=== PATIENT | female | born 1945 | race Caucasian/White ===

== ENCOUNTER 2016-08-30 13:18 | Day surgery (SDC) | payer MEDICARE ==
[~2016-08-30] VITALS: Ht 154.9 cm; Wt 68.0 kg
[2016-08-30 13:39] VITALS: BP 171/95; PULSE 80; RESP 20; TEMP 98.1; O2SAT 94
[2016-08-30] MEDS ORDERED: ESCI10TA PO (14:00)
[2016-08-30] MEDS ORDERED: HYDR12.57 PO (14:00)
[2016-08-30] MEDS ORDERED: DILT0.05 PO (14:00)
[2016-08-30] MEDS ORDERED: ASPI-110 PO (14:01)
[2016-08-30] MEDS ORDERED: VITA100018 PO (14:01)
[2016-08-30] MEDS ORDERED: ALLE10TA PO (14:01)
--- NOTE | 2016-08-30 15:24 | RADRPT ---
EXAM DATE/TIME: 08/30/2016 00:00 [facility] COMPARISON : No previous studies available for comparison. INDICATIONS : CONSULT FOR RENAL CONSULT OBJECTIVE: Temperature: 98.1 Heart Rate: 80 Blood Pressure: 171/95 Respiratory: 18 Oximetry: 94 PNEUMONIA VACCINE: YES HISTORY OF PRESENT ILLNESS: 71-year-old female with right renal mass incidentally noted on imaging. Patient here to discuss cryoa blation. Patient denies any hematuria or flank pain. PAST MEDICAL HISTORY : 1. Hypertension. 2. ANXIETY 3. HIATAL HERNIA 4. ENVIRONMENTAL ALLERGIES 5. ELEVATED KIDNEY FUNCTION PAST SURGICAL HISTORY : 1. TONSILLECTOMY 2. BENIGN TUMOR LEFT BREAST 3. L ANKLE SURGERY SOCIAL HISTORY : Social alcohol use. Tobacco;none. ALLERGIES: ENVIRONMENTAL ALLERGIES 2. NKDA MEDICATIONS: 1. DILTIAZEM ER 180 mg q.d. 2. ESCITALOPRAM 10 mg q.d. 3. HCTZ 12.5 mg q.d. 4. ASPIRIN 81 mg q.d. 5. VITAMIN D3 1000 units q.d. 6. LORATADINE 10 mg q.d. PHYSICAL EXAMINATION: General: Awake and alert. In no acute distress. Cardiovascular: Regular rate and rhythm. Respiratory: Lungs are clear to auscultation bilaterally. Extremities: Within normal limits. No edema IMAGING STUDIES: MRI of the abdomen August 06, 2016 from [facility]. These images were reviewed. They reveal a 3 x 2.4 cm enhancing solid mass involving the upper pole the right kidney. No adenopathy. 5 mm of retro peritoneal fat separate the lesion from the adjacent liver. Renal vein is unremarkable. ASSESSMENT: 3 cm lesion involving upper pole the right kidney worrisome for renal cell carcinoma. We discussed th e risks, benefits, and alternatives of cryoablation therapy. We also discussed performing biopsy imme diately followed by cryoablation versus the studies. She wishes to proceed with renal biop sy and cryoablation at the same setting. PLAN: Core biopsy and cryoablation of a right renal lesion. TIME SPENT: <20 minutes Josue Cho Jr., MD on August 30, 2016 at 15:12 Board Certified Radiologist. This report was verified electronically.
== END 2016-08-30 15:00 | disposition home or self-care (01) ==
LOC: HROP 13:18 → HRIP 13:23 → HROP 15:00
PROVIDERS: ATTEND Urology
DX: N28.89 Other specified disorders of kidney and ureter (principal); I10 Essential (primary) hypertension; F41.9 Anxiety disorder, unspecified; Z91.09 Other allergy status, other than to drugs and biological substances; Z79.82 Long term (current) use of aspirin

== ENCOUNTER 2016-08-31 09:38 | Day surgery (SDC) | payer MEDICARE ==
[~2016-08-31] VITALS: Ht 154.9 cm; Wt 68.2 kg
[~2016-08-31 09:38] MED LIST: ALLE10TA PO; ASPI-110 PO; DILT0.05 PO; ESCI10TA PO; HYDR12.57 PO; VITA100018 PO
[2016-08-31 09:58] VITALS: BP 151/93; PULSE 84; RESP 20; TEMP 98; O2SAT 95
[2016-08-31] MEDS ORDERED: SODIUM CHLOR 0.9% 1000 ML INJ 1,000 ML IV SCH ×2 (10:30→11:30)
[2016-08-31] MEDS ORDERED: CHLORHEXIDINE GLUCONATE 2 % 1 PACK (2 CLOTHS) TOPICAL PRN (11:00)
[2016-08-31] MEDS ORDERED: LACTATED RINGER'S 1000 ML IV PRN (11:00)
[2016-08-31] MEDS ORDERED: INSULIN HUMAN REGULAR 1,000 UNITS/10 ML VIAL SQ PRN (11:00)
[2016-08-31] MEDS ORDERED: POVIDONE IODINE 5% (ANTISEPSIS KIT) 4 APPLICATIONS EACH NARE PRN (11:00)
[2016-08-31] MEDS ORDERED: METOPROLOL TARTRATE 25 MG TAB PO PRN (11:00)
[2016-08-31] MEDS ORDERED: SODIUM CHLORID 0.9% 500 ML IV PRN (11:00)
[2016-08-31] MEDS ORDERED: ceFAZolin 2 GM PREMIX 50 ML ONE (11:12)
[2016-08-31] MEDS ORDERED: LIDOCAINE HCL 1% 20 ML VIAL ONE (11:14)
[2016-08-31] MEDS ORDERED: ceFAZolin 2 GM PREMIX 50 ML IV SCH (11:30)
--- NOTE | 2016-08-31 13:53 | PD.RAD ---
Post CT Procedure Prog Note Pre Procedure Diagnosis: (1) Renal mass, right Post Procedure Diagnosis: (1) Renal mass, right Procedure Date: Aug 31, 2016 Supervising Radiologist: Josue Cho JR Proceduralist/Assist: Jaguar Jameson RT(R)(CT) Anesthesia: General Plan of Activity Patient to Unit: PACU Patient Condition: Good See PACS Report for procedural detail/treatment Biopsy Imaging Guidance: CT Side: Right Biopsy Procedure: Kidney Specimen: Core Biopsy Findings: Successful right upper pole renal mass biopsy and cryoablation. Good result. Post ablation images show good ice ball. No untreated portion of lesion seen. No pneumothorax. Plan F/U with nephrology as planned. Patient will need f/u CTs in 3,6, and 12 months to start. This was discussed with the patient. Jr. Marquis,Josue Almonte MD Aug 31, 2016 13:53
[2016-08-31] MEDS ORDERED: oxyCODONE/ACETAMINOPHEN 5 MG/325 MG TAB PO PRN (14:00)
[2016-08-31] MEDS ORDERED: DO NOT ADM ANY ANTICOAGULANT DRUGS PRN (14:04)
[2016-08-31] MEDS ORDERED: ACETAMINOPHEN 1000 MG/100 ML VIAL IV ONE ×2 (14:17→14:45)
[2016-08-31 15:34] VITALS: BP 136/62; PULSE 62; RESP 18; TEMP 97.5; O2SAT 95
[2016-08-31 16:04] VITALS: BP 142/70; PULSE 67; RESP 19; O2SAT 94
--- NOTE | 2016-08-31 16:07 | RADRPT ---
EXAM DATE/TIME: 08/31/2016 14:24 [facility] COMPARISON: No previous studies available for comparison. INDICATIONS : Pneumothorax, s/p cryoablation. MEDICAL HISTORY : Hypertension. Hiatal hernia. SURGICAL HISTORY : None. ENCOUNTER: Initial ACUITY: 1 day PAIN SCORE: 0/10 LOCATION: Bilateral chest FINDINGS: The lungs are symmetrically aerated and clear. Elevation right hemidiaphragm. The heart is normal s ize. No evidence of pneumothorax. CONCLUSION: No evidence of pneumothorax on this semierect view of the chest. Josue Alba MD on August 31, 2016 at 15:59 Board Certified Radiologist. This report was verified electronically.
[2016-08-31 17:04] VITALS: BP 128/68; PULSE 81; RESP 17; O2SAT 97
--- NOTE | 2016-08-31 17:41 | RADRPT ---
EXAM DATE/TIME: 08/31/2016 11:49 [facility] COMPARISON: Outpatient MRI of the abdomen. INDICATIONS : Right renal mass BIOPSY SITE: Right kidney Anesthesia and pain control was provided by the Anesthesia department. Prophylactic antibiotics were administered with appropriate pre-procedure timing. Vancomycin within 2 hrs of procedure, Ancef (or alternative) within 1 hr of procedure start. Intra-procedural antibiotics were given as prescribed above. DEVICE(S): 1.) 18 gauge Temno core biopsy needle MEDICAL HISTORY : Hypertension. SURGICAL HISTORY : None. ENCOUNTER: Initial ACUITY: 1 day PAIN SCORE: 0/10 LOCATION: Right flank A total of one core specimen(s) were obtained and sent to the laboratory for pathologic evaluation. PROCEDURE: 1. CT guided renal biopsy of right upper pole renal mass. Prior to the procedure informed consent was obtained. Any appropriate prior imaging studies were rev iewed. Using automated exposure control and adjustment of the mA and/or kV according to patient size, radiat ion dose was kept as low as reasonably achievable to obtain optimal diagnostic quality images. The site was prepped in a sterile fashion. Full sterile technique was used, including cap, mask, domingo rile gloves and gown and a large sterile sheet. Hand hygiene and 2% chlorhexidine and/or betadine/al cohol prep was utilized per protocol for cutaneous antisepsis. The skin and subcutaneous tissues wer e infiltrated with local anesthetic solution. With CT guidance the previously identified right upper pole renal mass was localized. Biopsy was perf ormed using the prescribed needle as above. Adequate hemostasis was obtained with compression at the puncture site. Follow-up CT scan reveals no hemorrhage. The patient tolerated the procedure well and there were no complications. The patient was returned to the Radiology Outpatient Unit in stable condition. CONCLUSION: Uncomplicated CT guided biopsy of right upper pole renal mass. Josue Cho Jr., MD on August 31, 2016 at 17:36 Board Certified Radiologist. This report was verified electronically.
--- NOTE | 2016-08-31 17:44 | RADRPT ---
EXAM DATE/TIME: 08/31/2016 11:49 INDICATIONS : Right renal mass with imaging characteristics consistent with renal cell carcinoma. Anesthesia and pain control was provided by the Anesthesia department. Prophylactic antibiotics were administered with appropriate pre-procedure timing. DEVICE(S): 1.) Cryoablation probes(x3) MEDICAL HISTORY : Hypertension. SURGICAL HISTORY : None. ENCOUNTER: Initial ACUITY: 1 day PAIN SCORE: 0/10 LOCATION: Right flank PROCEDURE : 1. CT guided cryoablation. Under sterile conditions and using aseptic technique with CT guidance the mass was localized and sati sfactory approach was taken to access the lesion. Using automated exposure control and adjustment of the mA and/or kV according to patient size, radiation dose was kept as low as reasonably achievable to obtain optimal diagnostic quality images. 3 [employer] Cryoprobes 2.4 were employed using percutaneous technique employing the prescribed pr obes. A triangulation of the probes was performed to get adequate coverage of the right upper pole re nal lesion. The most cephalad component of the lesion required traversal of the most inferior portion of the posterior costophrenic sulcus. A biopsy was taken following the placement of a probes. Please see that report separately. A freeze-thaw, freeze-thaw technique was employed and serial imaging dem onstrated an ice ball encompassing the entire lesion. Post procedure images demonstrate expected pos toperative changes without evidence of hematoma. No pneumothorax observed. CONCLUSION: Uncomplicated cryoablation of a right upper pole renal lesion as above. The patient will require foll owup imaging to document resolution of the lesion. I discussed this at length with the patient. If he r ordering physician does not order of the CT scans beginning in 3 months I instructed her to contact me. Josue Cho Jr., MD on August 31, 2016 at 17:39 Board Certified Radiologist. This report was verified electronically.
--- NOTE | 2016-08-31 21:18 | EKG ---
Date Performed: 08/31/2016 Time Performed: 10:15:29 PTAGE: 71 years EKG: Sinus rhythm NORMAL ECG NO PREVIOUS TRACING DOCTOR: Harry Frances Interpretating Date/Time 08/31/2016 21:14:12
== END 2016-08-31 17:38 | disposition home or self-care (01) ==
LOC: HSDC 09:38 → HRIP 09:44 → HSDC 17:38
PROVIDERS: ATTEND Urology
DX: N28.89 Other specified disorders of kidney and ureter (principal); I10 Essential (primary) hypertension; F41.9 Anxiety disorder, unspecified
CPT/HCPCS: 50200; 50593; 71010; 77012; 77013; 88305; 88341; 88342; 93005; C2618; J0131; J0690; J3010; J7030; J7120

== ENCOUNTER 2016-09-02 10:02 | Day surgery (SDC) | payer MEDICARE ==
[2016-09-02 10:23] VITALS: BP 141/74; PULSE 93; RESP 18; TEMP 98.2; O2SAT 88
[2016-09-02 10:31] VITALS: BP 130/71; PULSE 89; RESP 18; TEMP 99; O2SAT 92
--- NOTE | 2016-09-02 12:00 | RADRPT ---
EXAM DATE/TIME: 09/02/2016 11:40 [facility] COMPARISON: No previous studies available for comparison. INDICATIONS : Evaluate for pleural effusion post cryoablation. MEDICAL HISTORY : Hypertension. Hiatal hernia. SURGICAL HISTORY : None. ENCOUNTER: Initial ACUITY: 2 days PAIN SCORE: 5/10 LOCATION: Bilateral chest FINDINGS: The left lung is clear. There is hazy opacity in the lower right lung on the frontal view and partia lly consolidative infiltrate seen posteriorly on the lateral view causing a loss of delineation of a portion of the posterior right hemidiaphragm. Cannot exclude some pleural effusion posteriorly on th e right. The heart is normal in size. CONCLUSION: Focal opacity in the posterior right lung best seen on lateral view suggesting either partial consoli dation, pleural effusion, or a combination of both. Josue Alba MD on September 02, 2016 at 11:57 Board Certified Radiologist. This report was verified electronically.
--- NOTE | 2016-09-02 12:03 | PD.RAD ---
Radiology Note Patient is 1 day s/p right renal mass cryoablation. Patient complains of an increase in abd pain as well as an intermittent temp of 101.0. 134/72 88 20 99.0 92%on room air Gen: awake and alert in no acute distress Abd: soft, mildly tender in RUQ, no rebound, no gaurding, no mass CT: shows small area of hemorrhage around ablation site in right kidney. Small freely flowing simple right pleural effusion. No pneumothorax A/P: 1) Post cryoablation site with small hemorrhage, not uncommon. This should resolve on its own. 2) Right pleural effusion. This is felt reactive in nature from the right retroperitoneal hemorrhage. The pleura had to be traversed for the cryoablation. This should resolve on its own. Will have patient return tomorrow for f/u CXR. 3)Fever. Pt AF here. Fever at home likely postembolic in nature. Self limiting. Jr. Marquis,Josue Almonte MD Sep 02, 2016 12:03
--- NOTE | 2016-09-02 13:51 | RADRPT ---
EXAM DATE/TIME: 09/02/2016 10:30 [facility] COMPARISON : No previous studies available for comparison. INDICATIONS : <F/U<CRYO?>> OBJECTIVE: Temperature: 99 Heart Rate: 84 Blood Pressure: 134/74 Respiratory: 20 Oximetry: 92 HISTORY OF PRESENT ILLNESS: Patient underwent cryoablation therapy of a right upper pole renal mass yesterday. The patient report s a slight increase in abdominal pain more anteriorly than posteriorly. Denies any hemoptysis, nausea , or lightheadedness. Denies any shortness of breath. Reports intermittent fever to 101.0. PHYSICAL EXAMINATION: General: Awake and alert. No acute distress. Abdomen: Soft to palpation. Mildly tender to the right upper quadrant. No guarding or rebound. No palpable mas s. IMAGING STUDIES: A CT of the abdomen and pelvis was performed today. These images reveal a small amount of hemorrhage within the ablation site of the upper pole the right kidney. A small posterior layering right pleural effusion with associated atelectasis. No pneumothorax. ASSESSMENT: 1) New small right pleural effusion. This is felt to be reactive in nature given the small amount of hemorrhage at the surgical site and the need to traverse the pleura for the procedure. This should be self limiting. The patient will return tomorrow for followup chest x-ray to document stability. If t he chest x-ray is stable at that time and there is no worsening in the patient's condition I will hav e the patient return later next week for repeat chest x-ray. 2) The patient is afebrile here. She reports a fever at home. This is likely post embolic in nature f rom the ablation. I see no signs to suggest infection. 3) Small postoperative hematoma. This should be self limiting. PLAN: Return tomorrow for repeat chest x-ray. If the patient is doing well and the effusion is relatively s table alignment the patient returned later next week for followup chest x-ray. TIME SPENT: 20 minutes Josue Cho Jr., MD on September 02, 2016 at 13:44 Board Certified Radiologist. This report was verified electronically.
--- NOTE | 2016-09-02 15:04 | RADRPT ---
EXAM DATE/TIME: 09/02/2016 10:54 [facility] COMPARISON: No previous studies available for comparison. INDICATIONS : Right sided flank pain after cryoablation. ORAL CONTRAST: No oral contrast ingested. RADIATION DOSE: 8.58 CTDIvol (mGy) MEDICAL HISTORY : Hypertension. SURGICAL HISTORY : None. ENCOUNTER: Initial ACUITY: 1 day PAIN SCALE: 5/10 LOCATION: Right flank TECHNIQUE: Volumetric scanning of the abdomen was performed. Using automated exposure control and adjustment of the mA and/or kV according to patient size, radiation dose was kept as low as reasonably achievable to obtain optimal diagnostic quality images. FINDINGS: There is a 2.7 x 2.2 cm hematoma involving the cryoablation bed within the upper pole of the right ki dney. There is stranding of the retroperitoneum on the right. Small amount of layering hematoma seen within the posterior portion of the right retroperitoneum. No large hematoma observed. The kidney is otherwise unremarkable. There is a small posterior layering right pleural effusion. There is passive atelectasis within the right lower lobe. No pneumothorax. The right flank shows no hematoma or fluid collections within the tracts from the recent procedure. No free air. CONCLUSION: 1. Small hematoma involving the surgical bed of the recent cryoablation. 2. Reactive right pleural effusion with associated atelectasis. No pneumothorax. Josue Cho Jr., MD on September 02, 2016 at 11:56 Board Certified Radiologist. This report was verified electronically.
== END 2016-09-02 11:30 | disposition home or self-care (01) ==
LOC: HROP 10:02 → HRIP 10:03 → HROP 11:30
PROVIDERS: ATTEND Radiology Body Imaging
DX: R10.11 Right upper quadrant pain (principal); J90 Pleural effusion, not elsewhere classified; R50.9 Fever, unspecified; Z98.890 Other specified postprocedural states
CPT/HCPCS: 71020; 74150; G0463; 99213

== ENCOUNTER → 2016-09-03 | Outpatient (CLI) | payer MEDICARE ==
--- NOTE | 2016-09-03 12:31 | RADRPT ---
EXAM DATE/TIME: 09/03/2016 12:17 [facility] COMPARISON: CHEST PA & LAT, September 02, 2016, 11:40. INDICATIONS : Evaluate for pleural effusion post cryoablation. MEDICAL HISTORY : Hypertension. SURGICAL HISTORY : None. ENCOUNTER: Initial ACUITY: 3 days PAIN SCORE: 0/10 LOCATION: Bilateral chest FINDINGS: Very small right pleural effusion with minimal associated airspace disease. Cardiomediastinal contour s are within normal limits. Bony thorax is intact. CONCLUSION: 1. Stable very small right pleural effusion and associated atelectasis in the right lower lobe. Froy Nava MD on September 03, 2016 at 12:25 Board Certified Radiologist. This report was verified electronically.
== END ==
LOC: HRAD 12:01
DX: J90 Pleural effusion, not elsewhere classified (principal)
CPT/HCPCS: 71020

== ENCOUNTER 2016-09-07 10:28 | Day surgery (SDC) | payer MEDICARE ==
[2016-09-07 10:43] VITALS: BP 142/81; PULSE 83; RESP 20; TEMP 98.2; O2SAT 92
--- NOTE | 2016-09-09 17:06 | RADRPT ---
EXAM DATE/TIME: 09/07/2016 11:03 [facility] COMPARISON : INDICATIONS : follow up renal cryo HISTORY OF PRESENT ILLNESS: The patient underwent CT-guided cryoablation 08/31/16. The patient reported some mild chest discomfort on the right. The patient had a chest x-ray performed 08/31/16 and 09/03/16. These demonstrated very mi nimal right basilar effusion. IMAGING STUDIES: The patient return for follow up x-ray. This demonstrates continued minimal basilar fusion on the rig ht. There is no significant atelectasis or pneumothorax. ASSESSMENT: Continued minimal basilar fusion on the right. PLAN: The effusion is very small in size as such I do not feel this warrants Or other intervention. Should the patient developed significant fever or other significant symptoms associated with this drainage c ould be performed. Patric Nguyen MD on September 09, 2016 at 16:58 Board Certified Radiologist. This report was verified electronically.
== END 2016-09-07 11:10 | disposition home or self-care (01) ==
LOC: HROP 10:28 → HRIP 10:29 → HROP 11:10
PROVIDERS: ATTEND Radiology Body Imaging
DX: D30.01 Benign neoplasm of right kidney (principal); R07.89 Other chest pain; J90 Pleural effusion, not elsewhere classified

== ENCOUNTER → 2016-09-09 | Outpatient (CLI) | payer MEDICARE ==
--- NOTE | 2016-09-09 14:47 | RADRPT ---
EXAM DATE/TIME: 09/09/2016 14:34 [facility] COMPARISON: CHEST PA & LAT, September 03, 2016, 12:17. INDICATIONS : Pneumothorax, post cryoablasion. MEDICAL HISTORY : Hypertension. SURGICAL HISTORY : ENCOUNTER: [facility] ACUITY: 1 week PAIN SCORE: 0/10 LOCATION: Right chest FINDINGS: 2 views of the chest continues demonstrate a small right pleural effusion. There is no significant pn eumothorax. Lungs are otherwise well expanded and clear. CONCLUSION: Small right pleural effusion. No evidence of pneumothorax. Otherwise stable chest. Kadeem Campos MD on September 09, 2016 at 14:35 Board Certified Radiologist. This report was verified electronically.
== END ==
LOC: HRAD 14:01
PROVIDERS: ATTEND Pathology Anatomic Pathology & Clinical Pathology
DX: J93.9 Pneumothorax, unspecified (principal)
CPT/HCPCS: 71020